=== PATIENT | male | born 1960 | race Caucasian/White ===

== ENCOUNTER 2023-01-18 20:06 | Emergency (ER) | payer OTHER, SELFPAY ==
[2023-01-18 20:12] VITALS: BP 129/107; PULSE 80; RESP 16; TEMP 36.4; O2SAT 98
== END 2023-01-18 21:31 | disposition left against medical advice (07) ==
PROVIDERS: Emergency Provider Emergency Medicine
DX: R55 Syncope and collapse (principal)
CPT/HCPCS: 99281

== ENCOUNTER 2023-03-19 11:35 | Emergency (ER) | payer OTHER, SELFPAY ==
[2023-03-19] VITALS (9 sets, daily range): BP systolic 119–154; BP diastolic 69–88; PULSE 62–77; RESP 15–31; TEMP 36.8; O2SAT 95–98; BMI 34.4
--- NOTE | 2023-03-19 12:01 | DI.CT.S_ITS ---
PROCEDURE: CT ANGIO HEAD AND NECK INDICATIONS: dizzy with recent pfo surgery TECHNIQUE: After the administration of intravenous contrast, 1 mm thick sections acquired from the aortic arch through the [place]. MIP reformats of the arterial vasculature were utilized. For radiation dose reduction, the following was used: automated exposure control, adjustment of mA and/or kV according to patient size. COMPARISON: None. FINDINGS: Cerebral CT Angiogram: Internal carotid arteries: No acute findings. Intracranial ICA are patent with no significant stenosis. No occlusion. No aneurysm. Anterior cerebral arteries: Hypoplasia/aplasia of the right A1 SENIA noted. The A2 segment is supplied by a widely patent anterior communicating artery. Remainder of the distal vasculature unremarkable. Middle cerebral arteries: Unremarkable. No significant stenosis. No occlusion. No aneurysm. Posterior cerebral arteries: Hypoplasia/aplasia of the right P1 FRAME BANDER noted. The P2 segment is supplied by a widely patent posterior communicating artery. Remainder of the distal vasculature unremarkable. Basilar artery: Unremarkable. No significant stenosis. No occlusion. No aneurysm. Vertebral arteries: Unremarkable as visualized. Dural venous sinuses: Unremarkable given phase of enhancement. Other: Arterial phase brain parenchyma is unremarkable. Neck CT Angiogram: Internal carotid arteries: Unremarkable. No significant stenosis. No dissection or occlusion. Common carotid arteries: Unremarkable. No significant stenosis. No dissection or occlusion. External carotid arteries: Unremarkable. No occlusion. Vertebral arteries: Unremarkable. No significant stenosis. No dissection or occlusion. Other: None. Aortic Arch and Mediastinum: Partially visualized aortic arch unremarkable without evidence of aneurysm. Origins of the great vessels unremarkable. IMPRESSION: 1. Unremarkable CT angiogram head and neck. No evidence of large vessel occlusion, aneurysm or vascular malformation Note: Any reported proximal ICA stenosis was calculated using NASCET guidelines. Approved by: Carlos Conteh M.D. on 03/19/2023 at 12:28
[2023-03-19] MEDS: SODIUM CHLORIDE 0.9% 1,000 ML 1000 ML IV (12:24)
[2023-03-19 12:25] LABS: Add Manual Diff / Slide Review NO; Basophils Absolute Auto 0 /uL (0-100); Basophils Percent Auto 0.5 % (0-2); Eosinophils Absolute Auto 0 /uL (0-450); Eosinophils Percent Auto 0.4 % (2-4); Hematocrit 45.6 % (41-53); Hemoglobin 15.7 g/dL (13.5-17.5); Lymphocytes Absolute Auto 1400 /uL (1100-4500); Lymphocytes Percent Auto 22.3 % (25-40); Mean Corpuscular HGB Conc 34.3 % (30-36); Mean Corpuscular Hemoglobin 31.2 PG (26-34); Mean Corpuscular Volume 90.9 fL (80-100); Monocytes Absolute Auto 500 /uL (0-900); Monocytes Percent Auto 8.7 % (3-14); Neutrophils Absolute Auto 4100 /uL (1500-7000); Neutrophils Percent Auto 68.1 % (50-75); Platelet Count 200 X10^3/uL (150-400); Red Blood Cell Count 5.02 X10^6/uL (4.5-5.9); Red Cell Distribution Width 12.8 % (11.6-14.8); White Blood Cell Count 6.1 X10^3/uL (4.5-11.0)
[2023-03-19 12:29] LABS: Alanine Aminotransferase 64 IU/L (<50); Albumin 4.4 g/dL (3.5-5.0); Albumin Globulin Ratio 1.4 (1.0-2.8); Alkaline Phosphatase 71 U/L (38-126); Aspartate Aminotransferase 40 IU/L (17-59); BUN Creatinine Ratio 24.5 (6-22); Bilirubin Total 0.5 mg/dL (0.2-1.3); Blood Urea Nitrogen 13 mg/dL (9-20); Carbon Dioxide 26 mmol/L (22-32); Chloride 101 mmol/L (98-107); Estimated Glomerular Filt Rate > 60 mL/min (>60); Globulin 3.1 g/dL (1.7-4.1); Glucose 115 mg/dL (80-110); HEMOLYSIS < 15 (0-50); Potassium 3.7 mmol/L (3.4-5.1); Sodium 136 mmol/L (137-145); Total Protein 7.5 g/dL (6.3-8.2)
--- NOTE | 2023-03-19 14:17 | ED_ITS ---
HPI - Dizziness General Chief Complaint: Dizziness Stated Complaint: GARCIA/Dizziness Time Seen by Provider: 03/19/23 12:01 Source: patient Mode of arrival: EMS History of Present Illness HPI Narrative: Patient 62-year-old male with recent history of DVT PFO with closure 3 days ago evidence of stroke presents today with headache and visual change. He reports that he has had some visual changes whenever he is dehydrated he reports that it is always out of 1 eye some visual loss but immediately goes away with fluids. He was diagnosed with DVT subsequent stroke back in December he was at the [facility] he had a PFO repair 3 days ago there was some confusion about date and time however he did not eat or drink anything for awhile. Following day he had headache and visual change which he reports was exactly like his dehydration visual change and it resolved. He was fine yesterday and then today had a very slight headache without significant visual change but wanted to get checked out. He is no numbness tingling or weakness. No chest pain palpitations he did not pass out he has no fever. Related Data Previous Rx's Medication Instructions Recorded albendazole 200 mg tablet (Albenza) 200 mg PO BID #2 tabs 04/23/17 Allergies Allergy/AdvReac Type Severity Reaction Status Date / Time No Known Drug Allergies Allergy Verified 03/19/23 11:54 Review of Systems Review of Systems ROS Unobtainable: All systems reviewed & are unremarkable except as noted in HPI and below Patient History tobacco type: smokeless tobacco Substance Use Type: does not use Exam Initial Vital Signs Initial Vital Signs: Vital Signs Temperature 98.2 F 03/19/23 11:54 Pulse Rate 67 03/19/23 11:54 Respiratory Rate 18 03/19/23 11:54 Blood Pressure 121/72 03/19/23 11:54 Pulse Oximetry 95 03/19/23 11:54 Oxygen Delivery Method Room Air 03/19/23 11:54 GENERAL: Alert very well-appearing 62-year-old and in no acute distress. HEENT: Head atraumatic,EOMI, pupils reactive, face symmetric, moist mucous membranes CARDIOVASCULAR: Regular rate and rhythm without murmurs, rubs or gallops. RESPIRATORY: Breath sounds equal bilaterally, no wheezes rales or rhonchi. ABDOMEN: Soft, nontender. Normoactive bowel sounds all 4 quadrants. No guarding or rebound. EXTREMITIES: Normal range of motion, no clubbing or edema. Neurovascularly intact NEUROLOGICAL: Alert and oriented x4.Normal gait and speech. Cranial nerves II through XII grossly intact. SKIN: Warm, dry, no laceration, no petechiae, no rashes or lesions. Scores NIH Stroke Scale Level of Conciousness: Alert, keenly responsive Ask month/age: Answers both questions correctly. Open/close eyes, close hand: Performs both tasks correctly Best gaze horizontal: Normal Visual smith: No visual loss Facial palsy: Normal symetrical movement Left arm drift: No drift for full 10 sec Right arm drift: No drift for full 10 sec Left leg drift: No drift for full 5 sec Right leg drift: No drift for full 5 sec Limb ataxia: Absent Sensory on face/arms/legs: Normal, no sensory loss Best language: No aphasia, normal Dysarthria: Normal Extinction or inattention: No abnormality Total NIH Stroke scale score: 0 Course Orders Ordered: ED Orders 03/19/23 12:01 CT angio head and neck Stat 03/19/23 12:05 CBC Auto Diff [Complete Blood Count AUTO DIFF] Stat CMP [Comprehensive Metabolic Panel] Stat 03/19/23 12:14 EKG-12 Lead Stat Discontinued Medications Sodium Chloride (Normal Saline 0.9%) 1,000 mls @ 1,000 mls/hr IV BOLUS ONE Stop: 03/19/23 13:00 Last Infusion: 03/19/23 14:00 Dose: 0 mls/hr Documented By: Admin: 03/19/23 12:24 Dose: 1,000 mls/hr Documented By: ADAM Vital Signs Vital signs: Vital Signs - 8 hr 03/19/23 11:54 03/19/23 12:57 03/19/23 13:00 Temperature 98.2 F Pulse Rate 67 65 Respiratory Rate 18 Blood Pressure 121/72 131/72 Pulse Oximetry 95 97 Oxygen Delivery Method Room Air 03/19/23 13:00 03/19/23 13:30 03/19/23 13:31 Temperature Pulse Rate 62 77 Respiratory Rate 15 29 H Blood Pressure 154/88 H Pulse Oximetry 96 Oxygen Delivery Method 03/19/23 13:31 03/19/23 14:00 03/19/23 14:00 Temperature Pulse Rate 74 64 Respiratory Rate 17 16 Blood Pressure 119/69 Pulse Oximetry 96 97 Oxygen Delivery Method 03/19/23 14:30 03/19/23 14:31 03/19/23 14:31 Temperature Pulse Rate 69 65 Respiratory Rate 31 H 25 H Blood Pressure 141/78 H Pulse Oximetry 97 98 Oxygen Delivery Method Room Air 03/19/23 15:00 03/19/23 15:00 Temperature Pulse Rate 64 Respiratory Rate 17 Blood Pressure 124/74 Pulse Oximetry 96 Oxygen Delivery Method MDM - Dizziness Lab Data 03/19/23 12:05 03/19/23 12:05 Labs: Lab Results 03/19/23 03/19/23 Range/Units 12:05 12:05 WBC 6.1 (4.5-11.0) X10^3/uL RBC 5.02 (4.5-5.9) X10^6/uL Hgb 15.7 (13.5-17.5) g/dL Hct 45.6 (41-53) % MCV 90.9 (80-100) fL MCH 31.2 (26-34) PG MCHC 34.3 (30-36) % RDW 12.8 (11.6-14.8) % Plt Count 200 (150-400) X10^3/uL Neut % (Auto) 68.1 (50-75) % Lymph % (Auto) 22.3 L (25-40) % [place] % (Auto) 8.7 (3-14) % Eos % (Auto) 0.4 L (2-4) % Baso % (Auto) 0.5 (0-2) % Neut # (Auto) 4100 (3656-0393) /uL Lymph # (Auto) 1400 (8008-2551) /uL [place] # (Auto) 500 (0-900) /uL Eos # (Auto) 0 (0-450) /uL Baso # (Auto) 0 (0-100) /uL Sodium 136 L (137-145) mmol/L Potassium 3.7 (3.4-5.1) mmol/L Chloride 101 (98-107) mmol/L Carbon Dioxide 26 (22-32) mmol/L BUN 13 (9-20) mg/dL Creatinine 0.53 L (0.66-1.25) mg/dL Estimated GFR > 60 (>60) mL/min BUN/Creatinine Ratio 24.5 H (6-22) Glucose 115 H (80-110) mg/dL Calcium 9.0 (8.4-10.2) mg/dL Total Bilirubin 0.5 (0.2-1.3) mg/dL AST 40 (17-59) IU/L ALT 64 H (<50) IU/L Alkaline Phosphatase 71 (38-126) U/L Total Protein 7.5 (6.3-8.2) g/dL Albumin 4.4 (3.5-5.0) g/dL Globulin 3.1 (1.7-4.1) g/dL Albumin/Globulin Ratio 1.4 (1.0-2.8) Urine Dip Bedside Urine Glucose Negative Bedside Urine Bilirubin - Negative Bedside Urine Ketone - Negative Urine Specific [place] 1.000 Bedside Urine Occult Blood - Negative Bedside Urine pH 7.0 Bedside Urine Protein - Negative Bedside Urine Urobilinogen - Negative Bedside Urine Nitrite - Negative Bedside Urine Leukocytes - Negative Esterase Imaging Data CTA - brain/neck: Radiologist's Impression: PROCEDURE:? CT ANGIO HEAD AND NECK ? INDICATIONS:? dizzy with recent pfo surgery ? TECHNIQUE:? After the administration of intravenous contrast, 1 mm thick sections acquired from the aortic arch through the [place] of [place].? MIP reformats of the arterial vasculature were utilized.? For radiation dose reduction, the following was used:? automated exposure control, adjustment of mA and/or kV according to patient size.? ? COMPARISON:? None. ? FINDINGS: ? Cerebral CT Angiogram: ? Internal carotid arteries:? No acute findings.? Intracranial ICA are patent with no significant stenosis.? No occlusion.? No aneurysm. ? Anterior cerebral arteries:? Hypoplasia/aplasia of the right A1 SENIA noted. The A2 segment is supplied by a widely patent anterior communicating artery. Remainder of the distal vasculature unremarkable. ? Middle cerebral arteries:? Unremarkable.? No significant stenosis.? No occlusion.? No aneurysm. ? Posterior cerebral arteries:? Hypoplasia/aplasia of the right P1 [employer] noted. The P2 segment is supplied by a widely patent posterior communicating artery. Remainder of the distal vasculature unremarkable. ? Basilar artery:? Unremarkable.? No significant stenosis.? No occlusion.? No aneurysm. ? Vertebral arteries:? Unremarkable as visualized. ? Dural venous sinuses:? Unremarkable given phase of enhancement. ? Other:? Arterial phase brain parenchyma is unremarkable. ? Neck CT Angiogram: ? Internal carotid arteries:? Unremarkable.? No significant stenosis.? No dissection or occlusion. ? Common carotid arteries:? Unremarkable.? No significant stenosis.? No dissection or occlusion. ? External carotid arteries:? Unremarkable.? No occlusion. ? Vertebral arteries:? Unremarkable.? No significant stenosis.? No dissection or occlusion. ? Other: None. ? Aortic Arch and Mediastinum:? Partially visualized aortic arch unremarkable without evidence of aneurysm. Origins of the great vessels unremarkable. ? IMPRESSION: ? 1. Unremarkable CT angiogram head and neck.? No evidence of large vessel occlusion, aneurysm or vascular malformation ? ? Note: Any reported proximal ICA stenosis was calculated using NASCET guidelines.? Approved by: Carlos Conteh M.D. on 03/19/2023 at 12:28 ECG Data Interpretation: Normal sinus rhythm rate 68 NE interval 170 QRS 104 QTC 435 at T changes no T- wave inversions Q-wave noted in lead 3 and AVF which actually were present in 2016. MDM Narrative Medical decision making narrative: Patient having significant history of recent CVA in December secondary to DVT and PFO. He remains on Eliquis he is supposed to stay on Eliquis until June. He had slight headache without any focal deficits. Concern with recent medical problems and history. Blood work is overall reassuring NIH stroke scale of 0. He is not having any visual changes now not consistent with a retinal detachment glaucoma retinal artery occlusion. At this time recommend outpatient follow-up. He was given a L of evidence of significant dehydration but feeling better. Discharge Plan Departure Patient Disposition: Home Clinical Impression: Headache Instructions: DI for Headache Activity Restrictions/Additional Instructions: *You have been diagnosed with headache *What to do: At this time please follow-up with doctors You could talk to them about changing over to Xarelto or Pradaxa if you do not like Eliquis *Continue to take medications as directed *Follow up with your primary care provider in 2-3 days or call [phone] *Return to ER if you should have increasing headache numbness tingling weakness or any new, worsening or concerning symptoms Prescriptions: No Action albendazole [Albenza] 200 MG tablet 200 mg PO BID Qty: 2 0RF Referrals: Miscellaneous,DoctorMD [Primary Care Provider] - Stand Alone Forms: Patient Portal/API
== END 2023-03-19 15:26 | disposition home or self-care (01) ==
PROVIDERS: Emergency Provider Emergency Medicine
DX: R51.9 Headache, unspecified (principal); R42 Dizziness and giddiness; R07.9 Chest pain, unspecified; Z79.01 Long term (current) use of anticoagulants
CPT/HCPCS: 70496; 70498; 80053; 81003; 85025; 93005; 96360; 96361; 99284; Q9967